=== PATIENT | male | born 1965 | race Caucasian/White ===

== ENCOUNTER 2021-05-01 07:42 | Outpatient (CLI) | payer OTHER, SELFPAY ==
[2021-05-01 08:45] LABS: Alanine Aminotransferase 68 U/L (4-50); Albumin Level 4.4 g/dL (3.5-5.1); Alkaline Phosphatase 94 U/L (38-126); Anion Gap 9 mmol/L (8-16); Aspartate Amino Transferase 54 U/L (17-59); Blood Urea Nitrogen 14 mg/dL (9-20); Calcium 8.9 mg/dL (8.4-10.2); Carbon Dioxide 27 mmol/L (22-30); Chloride 107 mmol/L (98-107); Cholesterol 195 mg/dL (0-200); Estimated Glomerular Filt Rate > 60; Glucose 108 mg/dL (65-110); HDL Direct 31 mg/dL; Potassium 3.9 mmol/L (3.4-5.0); Sodium 143 mmol/L (137-145); Triglycerides 121 mg/dL (<150)
[2021-05-01 08:56] LABS: LDL Cholesterol Direct 123 mg/dL
[2021-05-01 09:15] LABS: Prostate Specific Antigen 1.6 ng/mL (< OR = 4.0)
== END 2021-05-01 07:43 | disposition home or self-care (01) ==
LOC: ANHLAB 07:45
PROVIDERS: PCP Family Medicine; Visit Provider Physician Assistant Medical
DX: Z12.5 Encounter for screening for malignant neoplasm of prostate (principal); R03.0 Elevated blood-pressure reading, without diagnosis of hypertension; Z13.220 Encounter for screening for lipoid disorders
CPT/HCPCS: 36415; 80053; 80061; 84153; 84443; G0103

== ENCOUNTER 2021-05-15 07:50 | Outpatient (CLI) | payer OTHER, SELFPAY ==
[2021-05-15 08:45] LABS: Alanine Aminotransferase 60 U/L (4-50); Albumin Level 4.3 g/dL (3.5-5.1); Alkaline Phosphatase 97 U/L (38-126); Anion Gap 9 mmol/L (8-16); Aspartate Amino Transferase 52 U/L (17-59); Bilirubin,Total 0.8 mg/dL (0.2-1.3); Blood Urea Nitrogen 14 mg/dL (9-20); Carbon Dioxide 25 mmol/L (22-30); Chloride 107 mmol/L (98-107); Estimated Glomerular Filt Rate > 60; Glucose 105 mg/dL (65-110); Potassium 3.9 mmol/L (3.4-5.0); Sodium 141 mmol/L (137-145)
== END 2021-05-15 07:51 | disposition home or self-care (01) ==
PROVIDERS: PCP Family Medicine; Visit Provider Physician Assistant Medical
DX: E78.5 Hyperlipidemia, unspecified (principal); R79.89 Other specified abnormal findings of blood chemistry
CPT/HCPCS: 36415; 80053

== ENCOUNTER 2021-05-21 10:13 | Outpatient (CLI) | payer OTHER, SELFPAY ==
[2021-05-21 11:50] LABS: Hepatitis B Surface Antigen Negative (Negative)
[2021-05-21 12:42] LABS: Hemoglobin A1C 5.9 % (<5.7)
[2021-05-21 14:45] LABS: HAV RESULT Negative (Negative); Hepatitis B Core IgM Result Negative (Negative); Hepatitis C Virus Antibody Negative (Negative)
== END 2021-05-21 10:14 | disposition home or self-care (01) ==
LOC: ANHLAB 10:15
PROVIDERS: PCP Family Medicine; Visit Provider Physician Assistant Medical
DX: R79.89 Other specified abnormal findings of blood chemistry (principal); R73.09 Other abnormal glucose
CPT/HCPCS: 36415; 80074; 83036

== ENCOUNTER 2021-06-09 07:50 | Outpatient (CLI) | payer OTHER, SELFPAY ==
--- NOTE | ~2021-06-09 | US_ITS ---
EXAMINATION: US abdomen complete DATE: 06/09/2021 09:01 INDICATION: Other specified abnormal findings of blood chemistry. TECHNIQUE: Multiple grayscale and Doppler ultrasound images of the abdomen were obtained. COMPARISON: None FINDINGS: The visualized portions of the head, body, and tail of the pancreas are normal. There is di ffuse hepatic steatosis. No liver surface nodularity. There is normal flow in main portal vein. The g allbladder is normal in size. No gallstones or gallbladder wall thickening. There was no sonographic Reddy sign. The common duct is normal and measures 3 mm. The spleen is normal in size. The visualize d portions of inferior vena cava are normal. Abdominal aorta is normal in caliber. The kidneys are no rmal in size. There are cysts in the kidneys measuring up to 2.1 cm on the left. There is a 2.5 cm hy poechoic mass in left kidney. IMPRESSION: 1. Diffuse hepatic steatosis. 2. 2.5 cm left kidney mass, which may be a cyst or less likely a neoplasm. Abdomen CT without and wit h contrast is recommended. Reviewed, dictated and finalized at location A. IMPRESSION: 1. Diffuse hepatic steatosis. 2. 2.5 cm left kidney mass, which may be a cyst or less likely a neoplasm. [facility] without and with contrast is recommended.
== END 2021-06-09 07:51 | disposition home or self-care (01) ==
LOC: ANHIMG 07:51
PROVIDERS: PCP Family Medicine; Visit Provider Physician Assistant Medical
DX: R79.89 Other specified abnormal findings of blood chemistry (principal); R73.09 Other abnormal glucose; K76.0 Fatty (change of) liver, not elsewhere classified; N28.89 Other specified disorders of kidney and ureter
CPT/HCPCS: 76700

== ENCOUNTER → 2021-07-14 09:25 | Outpatient (CLI) | payer OTHER, SELFPAY ==
--- NOTE | ~2021-07-14 | CT_ITS ---
EXAMINATION: CT abdomen wo/w con EXAM DATE: 07/14/2021 09:59 INDICATION: N28.89 - Other specified disorders of kidney and ureter. Abnormal ultrasound, left renal 2.5 cm cyst versus mass. TECHNIQUE: Spiral CT of the abdomen was performed without and then with intravenous injection of 100 mL Omnipaque 350. Axial, coronal and sagittal images of the abdomen were reviewed. The dose-length product (DLP) for this examination was 1723.55 mGy-cm. The exposure was tailored according to patie nt size (auto mA exposure control), and iterative reconstruction (ASIR) was used as additional dose r eduction technique. Correlation is made to abdominal ultrasound 06/09/2021. FINDINGS: There is hepatic steatosis without suspicious focal lesion identified. Spleen, adrenal glan ds, pancreas are unremarkable. Gallbladder is unremarkable. No biliary obstruction. There is no ne phrolithiasis or hydronephrosis. There are 3 nonenhancing left renal lesions consistent with cysts me asuring. A 3 cm in size. Several smaller bilateral renal cysts. No suspicion of kidney cancer. Ther e is no retroperitoneal lymphadenopathy. Small umbilical fat-containing hernia. The appendix is normal. There is mild to moderate descending/sigmoid colonic diverticulosis. There i s no adjacent inflammatory change to suggest diverticulitis. The stomach and small bowel are unremark able. There is expected amount of colonic stool. No free intraperitoneal gas. The heart is elizabeth l in size. There are no pericardial or pleural effusions. The lung bases are unremarkable. There a re no osteoblastic or osteolytic lesions identified. Small metallic foreign body in left posterior l ateral intercostal musculature. IMPRESSION: 1. Renal cysts. 2. Hepatic steatosis. Reviewed, dictated and finalized at location A. UNCHER
[2021-07-14 09:48] LABS: Estimated Glomerular Filt Rate > 60
== END ==
PROVIDERS: PCP Family Medicine; Visit Provider Physician Assistant Medical
DX: N28.89 Other specified disorders of kidney and ureter (principal); N28.1 Cyst of kidney, acquired; K76.0 Fatty (change of) liver, not elsewhere classified
CPT/HCPCS: 74170; Q9967

== ENCOUNTER 2023-12-08 11:24 | Outpatient (CLI) | payer OTHER, SELFPAY ==
[2023-12-08 12:09] LABS: Basophils Absolute Auto 0.1 K/mm3 (0.0-0.1); Basophils Percent Auto 1.1 % (0.2-1.2); Eosinophils Absolute Auto 0.4 K/mm3 (0-0.3); Eosinophils Percent Auto 4.6 % (0-4.4); Hematocrit 49.5 % (42.0-52.0); Hemoglobin 16.8 g/dL (14.0-18.0); Immature Granulocyte Absolute 0.03 K/mm3 (0.00-0.031); Immature Granulocyte Percent A 0.4 % (0-0.5); Immature Platelet Fraction Pct 5.1 % (0.9-11.2); Lymphocytes Absolute Auto 2.28 K/mm3 (0.9-3.2); Lymphocytes Percent Auto 27.6 % (18.3-44.2); Mean Corpuscular HGB Conc 33.9 g/dl (32-36); Mean Corpuscular Volume 97.2 fl (80-100); Mean Platelet Volume 10.6 fl (7.4-10.4); Monocytes Absolute Auto 0.8 K/mm3 (0.1-0.6); Monocytes Percent Auto 9.2 % (2.6-8.5); Neutrophils Absolute Auto 4.7 K/mm3 (1.3-6.7); Neutrophils Percent Auto 57.1 % (45.5-73.1); Platelet Count Result 196 k/mm3 (150-375); Red Blood Count 5.09 M/mm3 (4.6-6.20); Red Cell Distribution Width 13.2 % (11.5-14.5); White Blood Count 8.3 K/mm3 (4.5-10.0)
[2023-12-08 12:15] LABS: Alanine Aminotransferase 72 U/L (6-50); Albumin Level 4.7 g/dL (3.5-5.1); Alkaline Phosphatase 121 U/L (38-126); Anion Gap 10 mmol/L (4-12); Aspartate Amino Transferase 58 U/L (17-59); Bilirubin,Total 0.8 mg/dL (0.2-1.3); Blood Urea Nitrogen 15 mg/dL (9-20); Calcium 9.8 mg/dL (8.4-10.2); Carbon Dioxide 25 mmol/L (22-30); Chloride 109 mmol/L (98-107); Cholesterol 197 mg/dL (0-200); Estimated Glomerular Filt Rate > 60; Glucose 98 mg/dL (65-110); HDL Direct 37 mg/dL; Potassium 3.9 mmol/L (3.4-5.0); Sodium 144 mmol/L (137-145); Triglycerides 119 mg/dL (<150)
[2023-12-08 12:26] LABS: LDL Cholesterol Direct 145 mg/dL
[2023-12-08 12:41] LABS: Rapid Plasma Reagin Non-Reactive (NonReactive)
[2023-12-08 12:45] LABS: Prostate Specific Antigen 1.6 ng/mL (< OR = 4.0); Thyroid Stimulating Hormone 0.872 uIU/mL (0.465-4.680)
[2023-12-08 12:55] LABS: HIV 1/2 Ab P24 Ag Result Negative (Negative)
== END 2023-12-08 11:25 | disposition home or self-care (01) ==
LOC: ANHLAB 11:29
PROVIDERS: PCP Family Medicine; Visit Provider Physician Assistant Medical
DX: E78.5 Hyperlipidemia, unspecified (principal); I10 Essential (primary) hypertension; R73.09 Other abnormal glucose; R79.89 Other specified abnormal findings of blood chemistry; Z12.5 Encounter for screening for malignant neoplasm of prostate; Z20.2 Contact with and (suspected) exposure to infections with a predominantly sexual mode of transmission
CPT/HCPCS: 36415; 80053; 80061; 84153; 84443; 85025; 85055; 86592; 86695; 86696; 86703; G0103; G0432

== ENCOUNTER 2024-06-01 08:05 | Outpatient (CLI) | payer OTHER, SELFPAY ==
--- NOTE | ~2024-06-01 | US_ITS ---
US abdomen complete EXAMINATION: US Abdomen Complete INDICATION: Abnormal liver function tests PROCEDURE: Realtime High Resolution abdomen ultrasound. COMPARISON: No prior studies for comparison FINDINGS: Gallbladder within normal limits. No gallstones, pericholecystic fluid, gallbladder wall t hickening or biliary dilatation. Common bile duct measures 5.5 mm. Liver echotexture is increased, consistent with fatty infiltration.. Pancreas within normal limits. Pancreatic tail is obscured by bowel gas. There is borderline splenomegaly. Renal echotexture is wit hin normal limits bilaterally without hydronephrosis, contour deforming mass or renal stone. There ar e left renal cysts, largest measuring 3.6 cm. Right kidney measures 12.7 cm. Left kidney measures 13. 5 cm. Visualized aspects of the aorta and IVC are within normal limits. Portal vein is patent. No sonograph ic Reddy's sign indicated by the technologist. IMPRESSION: 1: Fatty infiltration of the liver. 2: Borderline splenomegaly. Reviewed, dictated and finalized at location B.
== END 2024-06-01 08:06 | disposition home or self-care (01) ==
PROVIDERS: PCP Physician Assistant Medical; Visit Provider Physician Assistant Medical
DX: R79.89 Other specified abnormal findings of blood chemistry (principal); K76.0 Fatty (change of) liver, not elsewhere classified
CPT/HCPCS: 76700

== ENCOUNTER 2024-09-09 07:00 | Outpatient (NON) | payer OTHER, SELFPAY ==
--- OUTSIDE RECORDS SUMMARY | 2024-09-10 07:23 | XMS_ITS | Clinical Summary ---
Author Organization [facility] Address [address] [place] [address]. 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 Phone Unavailable Primary Care Provider Unavailabl e Social History Tobacco Use Types Packs/Day Years Used Date Smoking Tobacco: Never Assessed Sex and Gender Information Value Date Recorded Sex Assigned at Not on file Legal Sex Male 8:00 PM CDT Gender Identity Not on file Sexual Orientation Not on file Plan of Treatment Health Maintenance Due Date Last Done Comments Colorectal Cancer Screening Colonoscopy (10 Years) 1967 Annual Physical 1970 Hepatitis C 1985 DTaP, Tdap and Td Vaccines ( 1 - Tdap) 1986 Hepatitis B Vaccines (1 of 3 - 19+ 3-dose series) 1986 Zoster Vaccines (1 of 2) 2017 COVID-19 Vaccine (2023-2 5 season) 2024 Influenza Adult (#1) 2024 Meningococcal B Vaccine Aged Out No l onger eligible based on patient's age to complete this topic Meningococcal Vaccine Aged Out No ingrid mat eligible based on patient's age to complete this topic Pneumococcal Vaccine: Pediat rics (0 to 5 Years) and At-Risk Patients (6 to 64 Years) Aged Out No longer eligible b ased on patient's age to complete this topic RSV Immunizations Under 20 Months Aged Out No longer eligible based on patient's age to complete this topic
== END 2024-09-09 07:01 | disposition home or self-care (01) ==
LOC: ANHLAB 09-10 07:21
PROVIDERS: PCP Family Medicine; Visit Provider Internal Medicine Gastroenterology
DX: K63.5 Polyp of colon (principal)
CPT/HCPCS: 88305